=== PATIENT | male | born 1960 | race Caucasian/White ===

== ENCOUNTER 2023-11-14 23:48 | Emergency (ER) | payer MEDICARE, BC ==
[~2023-11-14] VITALS: Ht 167.6 cm; Wt 93.2 kg
[2023-11-15] MEDS ORDERED: LIDOcaine/PRILOcaine 5gm cream TP ONE (01:50)
[2023-11-15] MEDS ORDERED: bacitracin 15gm ointment TP ONE (01:50)
[2023-11-15] MEDS ORDERED: SULF1TAB49 PO (02:38)
[2023-11-15] MEDS ORDERED: sulfamethoxazole/trimethoprim DS (800/160mg) tablet PO ONE (02:40)
[2023-11-15] MEDS ORDERED: ondansetron 4mg rapidly disintigrating tab PO ONE (02:40)
[2023-11-15 03:43] VITALS: BP 143/90; PULSE 82; RESP 16; TEMP 98; O2SAT 98
== END 2023-11-15 03:46 | disposition home or self-care (01) ==
LOC: ER 23:48
DX: S01.312A Laceration without foreign body of left ear, initial encounter (principal); I10 Essential (primary) hypertension; Z85.118 Personal history of other malignant neoplasm of bronchus and lung; Z79.899 Other long term (current) drug therapy; W06.XXXA Fall from bed, initial encounter; Z91.81 History of falling; Y93.89 Activity, other specified; Y92.89 Other specified places as the place of occurrence of the external cause; Y99.8 Other external cause status
CPT/HCPCS: 12013; 70450; 72125; 99284

== ENCOUNTER 2025-09-11 19:42 | Emergency (ER) | payer MEDICARE ==
[~2025-09-11] VITALS: Ht 167.6 cm; Wt 220.0 kg
[2025-09-11 19:45] VITALS: BP 167/111; PULSE 86; TEMP 97.6; O2SAT 98
[2025-09-11 21:23] VITALS: RESP 18
--- NOTE | 2025-09-11 22:04 | Physician Documentation ---
History of Present Illness ~ Chief Complaint: Extremity Swelling Stated Complaint: EXTREMITY SWELLING Time Seen by MD: 22:04 Tetanus witin 5 years: No Medication Reconciliation Allergies: Coded Allergies: No Known Allergies (Unverified , 09/11/25) Past Medical History Past Medical History: Hypertension, *CANCER*, Lung Cancer Past Surgical History: noncontributory Alcohol Use: None Drug Use: none Lives with: Family Physical Exam Vital Signs: Temperature: 97.6, Source: Oral, Heart Rate: 86, Respiratory Rate: 18, BP: 167/111, Pulse Oximetry: 98, Weight: 220.000 Oxygen Flow Rate: 0 Progress Results/Orders Results/Orders Vital Signs 09/11/25 09/11/25 19:45 21:23 Temp 97.6 Pulse 86 Resp 14 18 B/P (MAP) 167/111 Pulse Ox 98 O2 Flow Rate 0 Departure Referrals: NO PRIMARY CARE PROVIDER (PCP) MACEY CLOUD MD Sep 11, 2025 22:04
--- NOTE | 2025-09-11 22:18 | VASCULAR REPORT ---
BILATERAL LOWER EXTREMITY VENOUS DUPLEX REASON FOR EXAMINATION: Bilateral lower extremity pain and edema. COMPARISON: None TECHNIQUE: Using real-time freeze-frame technique with a high-frequency transducer, multiple longitudinal and transverse sections were obtained. Simultaneous color flow and spectral Doppler imaging was performed. FINDINGS: There is good visualization of the deep venous system with no intraluminal filling defects identified. Normal venous compressibility is seen and there is flow augmentation. Color flow Doppler imaging of the deep veins is unremarkable. There is a noncompressible superficial vein in the midportion of the right calf. IMPRESSION: NO EVIDENCE OF DEEP VENOUS THROMBOSIS. Noncompressible superficial vein in the midportion of the right calf. Correlate clinically for superficial thrombophlebitis.
== END 2025-09-11 22:11 | disposition left against medical advice (07) ==
LOC: ER 19:43
DX: M79.662 Pain in left lower leg (principal); M79.661 Pain in right lower leg
CPT/HCPCS: 93970; 99281; 99284